=== PATIENT | female | born 1960 | race Caucasian/White ===

== ENCOUNTER 2023-11-05 09:21 | Day surgery (SDC) | payer BC, MEDICARE, SELFPAY ==
[2023-11-01 14:12] VITALS: BMI 28.2
--- NOTE | 2023-11-01 15:09 | HO.ANESPROP2 ---
Documented by User: Britt Tyson NP 11/01/23 15:09 HPI - Anesthesia Eval Consult details Narrative: 63yo F for Colonoscopy PMF Past Medical History Medical History (Updated 11/01/23 @ 14:08 by Chrissy Guevara RN) Back pain GERD (gastroesophageal reflux disease) Hypothyroid Anxiety and depression PTSD (post-traumatic stress disorder) Osteopenia Surgical History Surgical History (Updated 11/01/23 @ 14:08 by Chrissy Guevara RN) History of uvulopalatopharyngoplasty History of partial hysterectomy Hx of repair of right rotator cuff History of back surgery H/O colonoscopy Social History Social History Patient Tobacco Use Status: Former Tobacco user Quit Date: >10 yr ago Tobacco use type: Cigarette Use of substances other than those prescribed or required for medical reasons: No Advance Directives: No Advance Directives Information Provided: Yes Advance Directives on File: No Meds Allergies Allergy/AdvReac Type Severity Reaction Status Date / Time No Known Allergies Allergy Verified 11/01/23 14:05 Home Medications ?Medication ?Instructions ?Recorded ?Confirmed ?Last Taken ?Type hydrocodone 7.5 mg-acetaminophen 1 tab PO TID PRN Pain 11/01/23 11/01/23 Unknown History 300 mg tablet levothyroxine 112 mcg tablet 112 mcg PO DAILY 11/01/23 11/01/23 11/05/23 History lorazepam 1 mg tablet 1 mg PO BEDTIME PRN Insomnia 11/01/23 11/01/23 11/05/23 History multivitamin 1 tab PO DAILY 11/01/23 11/01/23 Unknown History red yeast rice 600 mg capsule 600 mg PO DAILY 11/01/23 11/01/23 Unknown History trazodone 100 mg tablet 200 mg PO BEDTIME 11/01/23 11/01/23 Unknown History Exam Height,Weight and Vital Signs: Height 5 ft 2 in Weight 69.853 kg Assessment and Plan Assessment Anesthesia Assessment: Chart Reviewed Documented by User: Osiel Lazar MD 11/05/23 09:51 PMFSH Past Medical History Medical History (Updated 11/01/23 @ 14:08 by Chrissy Guevara RN) Back pain GERD (gastroesophageal reflux disease) Hypothyroid Anxiety and depression PTSD (post-traumatic stress disorder) Osteopenia Family History Family history of problems with anesthesia: No Surgical History Surgical History (Updated 11/01/23 @ 14:08 by Chrissy Guevara RN) History of uvulopalatopharyngoplasty History of partial hysterectomy Hx of repair of right rotator cuff History of back surgery H/O colonoscopy History of Problems with Anesthesia: No Social History Social History Patient Tobacco Use Status: Former Tobacco user Quit Date: >10 yr ago Tobacco use type: Cigarette Use of substances other than those prescribed or required for medical reasons: No Advance Directives: No Advance Directives Information Provided: Yes Advance Directives on File: No Meds Allergies Allergy/AdvReac Type Severity Reaction Status Date / Time No Known Allergies Allergy Verified 11/01/23 14:05 Home Medications ?Medication ?Instructions ?Recorded ?Confirmed ?Last Taken ?Type hydrocodone 7.5 mg-acetaminophen 1 tab PO TID PRN Pain 11/01/23 11/01/23 Unknown History 300 mg tablet levothyroxine 112 mcg tablet 112 mcg PO DAILY 11/01/23 11/01/23 11/05/23 History lorazepam 1 mg tablet 1 mg PO BEDTIME PRN Insomnia 11/01/23 11/01/23 11/05/23 History multivitamin 1 tab PO DAILY 11/01/23 11/01/23 Unknown History red yeast rice 600 mg capsule 600 mg PO DAILY 11/01/23 11/01/23 Unknown History trazodone 100 mg tablet 200 mg PO BEDTIME 11/01/23 11/01/23 Unknown History Exam Airway Mallampati Class: III TM Dist: >3cm Neck ROM: Full Denture: Upper Assessment and Plan Assessment Anesthesia Assessment: Anesthesia Plan Discussed Final Anesthetic Review Family History of Problems with Anesthesia: No History of Problems with Anesthesia: No NPO: Yes ASA Class: II Final Preanesthetic Review: No Changes in Pt Med Stat, Meds/Allgs Chart Reviewed, Consent Obtained/Reviewed and Anes Risks/Benef Reviewed Patient Risk: Intermediate Procedure Risk: Low Anesthetic Plan Anesthetic Plan: TIVA Disposition: Standard PACU
[2023-11-05 09:24] VITALS: BP 123/67; PULSE 108; RESP 18; TEMP 36.1; O2SAT 97
[2023-11-05] MEDS: Lactated Ringers 1,000 ML 100 ML IVCONT (09:44)
--- NOTE | 2023-11-05 11:44 | MHC.SHP ---
Pre-Procedural Eval Section A - 24 Hr Update-Section A only Date of Service: 11/05/23 Section B - Complete if H&P > 30 days Chief Complaint: Other fecal abnormalities Details of Present Illness: see H*P no changes Relevant Family History (Specify if Yes): No Relevant Social History: None Present Medications: see Short Stay Collaborative assessment Medical History: No relevant PMH History of Previous Operations: No relevant previous surgery Allergies: Allergies Allergy/AdvReac Type Severity Reaction Status Date / Time No Known Allergies Allergy Verified 11/01/23 14:05 Review of Systems Sugical H&P ROS: Negative: Constitution, Cardiovascular, Respiratory, Neurological, Psychiatric, Hem-Onc, Allergic/Immunologic, Gastrointestinal, Genitourinary, Musculoskeletal, Integumentary, Endocrine and Eyes/Ears/Nose/Throat Exam Surgical H&P Exam: Normal: HEENT, Normal: Heart, Normal: Lungs, Normal: Extremities, Normal: Abdomen, Normal: Skin and Normal: Neurological Plan Diagnosis/Plan: Unchanged I have reviewed the history and physical and performed a pertinent physical examination on my patient. No changes have occurred unless specified. Time Spent With Patient Time: Total time managing care of this patient today ____ minutes.
[2023-11-05 12:17] VITALS: BP 113/61; PULSE 106; RESP 16; TEMP 36.1; O2SAT 97
[2023-11-05 12:32] VITALS: BP 122/66; PULSE 104; RESP 16; TEMP 36.1; O2SAT 98
--- NOTE | 2023-11-05 13:15 | OP_ITS ---
DATE OF SERVICE: 11/05/2023 SURGEON: Asad Stevens MD INDICATIONS: Abnormal findings in stool. PREOPERATIVE DIAGNOSIS: POSTOPERATIVE DIAGNOSIS: PROCEDURE PERFORMED: Colonoscopy to the terminal ileum. ESTIMATED BLOOD LOSS: COMPLICATIONS: ANESTHESIA: Monitored anesthesia care. ASSISTANTS: SPECIMENS: DESCRIPTION OF PROCEDURE: A history and physical was performed. The risks and benefits of the procedure were explained to the patient and informed consent was obtained. The patient was placed in the left lateral decubitus position. A digital rectal exam was performed and was found to be normal. The Olympus pediatric video colonoscope was introduced into the rectum and advanced to the cecum. The cecum was identified by transillumination, palpation, and identification of ileocecal valve. Examination was performed and the scope was removed. She tolerated the procedure well and was taken to recovery area in stable condition. FINDINGS: The terminal ileum was normal. The visualized colonic mucosa was normal. The quality of the prep was good. No polyps were identified. Retroflexed examination showed moderate-sized internal hemorrhoids. IMPRESSION: Normal colonoscopy. RECOMMENDATIONS: 1. Follow up as needed. 2. Repeat colonoscopy is recommended in 10 years for average-risk individuals. MD OLIVIA Resendiz/PHOEBEL / [id number]
== END 2023-11-05 13:40 | disposition home or self-care (01) ==
PROVIDERS: PCP Internal Medicine Geriatric Medicine; Visit Provider Internal Medicine Gastroenterology
PROC: 0DJD8ZZ Inspection of Lower Intestinal Tract, Via Natural or Artificial Opening Endoscopic (ICD-10-PCS; CPT 45378; principal; 2023-11-05 11:40)
DX: R19.5 Other fecal abnormalities (principal)
CPT/HCPCS: 45378; J2704